=== PATIENT | female | born 1985 | race Caucasian/White ===

== ENCOUNTER → 2019-02-06 13:32 | Outpatient (CLI) | payer OTHER, SELFPAY ==
[2019-02-08 03:06] LABS: Age Gdln ACOG Testing 30-65 (.)
[2019-02-08 17:06] LABS: HPV APTIMA, High Risk Negative (Negative); HPV Reflexed? YES, CHARGE PATIENT
== END ==
PROVIDERS: Visit Provider Obstetrics & Gynecology
DX: Z12.4 Encounter for screening for malignant neoplasm of cervix (principal)
CPT/HCPCS: 87624; 88175; G0145